=== PATIENT | female | born 1985 | race Caucasian/White ===

== ENCOUNTER 2022-04-07 07:53 | Inpatient (IN) | payer BC ==
[2022-04-07] MEDS ORDERED: Methylergonovine 0.2 MG/1 ML Amp IM PRN (08:34)
[2022-04-07] MEDS ORDERED: Nalbuphine HCl 10 MG/ 1ML Amp IVPUSH PRN (08:34)
[2022-04-07] MEDS ORDERED: Misoprostol 200 MCG Tab PO PRN (08:34)
[2022-04-07] MEDS ORDERED: Lidocaine 1% 50 ML MDV INJECT PRN (08:34)
[2022-04-07] MEDS ORDERED: Oxytocin/Lactated Ringers 10 UNIT/1,000 ML BAG IV SCH ×2 (08:45)
[2022-04-07] MEDS ORDERED: Ampicillin 2 GM in Sodium Chloride 0.9% 100 ML IV ONE (09:00)
[2022-04-07] MEDS: Lactated Ringers 1,000 ML IV SCH ×2 (09:11→21:04)
[2022-04-07] MEDS ORDERED: ePHEDrine 50 MG/ML SDV IVPUSH PRN (10:23)
[2022-04-07] MEDS ORDERED: fentaNYL 100 MCG/2 ML SDV EPIDUR PRN (10:23)
[2022-04-07] MEDS ORDERED: diphenhydrAMINE 50 MG/ML SDV IVPUSH PRN (10:23)
[2022-04-07] MEDS: Ampicillin 1 GM in Sodium Chloride 0.9% 100 ML IV SCH ×3 (13:07→21:03)
[2022-04-07] MEDS: Bupivacaine/fentaNYL/NS 100 ML Bag EPIDUR PRN (21:06)
[2022-04-08] MEDS ORDERED: Bupivacaine 0.25% 10 ML SDV ONE
[2022-04-08] MEDS: Ampicillin 1 GM in Sodium Chloride 0.9% 100 ML IV SCH ×3 (01:16→09:20)
[2022-04-08] MEDS: Lactated Ringers 1,000 ML IV SCH (04:00)
[2022-04-08] MEDS: Bupivacaine/fentaNYL/NS 100 ML Bag EPIDUR PRN (04:02)
[2022-04-08] MEDS ORDERED: Ondansetron 4 MG/2 ML SDV IVPUSH PRN (08:27)
[2022-04-08] MEDS ORDERED: Hydrocortisone Acetate 25 MG Supp RECTAL PRN (11:05)
[2022-04-08] MEDS ORDERED: Benzocaine/Menthol 20%-0.5% Spray 78 GM Cannister TOP PRN (11:05)
[2022-04-08] MEDS ORDERED: Witch Hazel Medicated Pads 40/Jar TOP PRN (11:05)
[2022-04-08] MEDS ORDERED: Acetaminophen 325 MG Tab PO PRN (11:05)
[2022-04-08] MEDS ORDERED: Magnesium Hydroxide 400 MG/5 ML Susp 30 ML Cup PO PRN (11:05)
[2022-04-08] MEDS ORDERED: Oxytocin/Lactated Ringers 10 UNIT/1,000 ML BAG IV SCH (11:05)
[2022-04-08] MEDS: Ibuprofen 600 MG Tab PO PRN ×2 (11:18→18:25)
[2022-04-08] MEDS: Docusate Sodium 100 MG Cap PO PRN (18:25)
[2022-04-09] MEDS: Docusate Sodium 100 MG Cap PO PRN (07:30)
[2022-04-09] MEDS: Ibuprofen 600 MG Tab PO PRN ×3 (07:30→20:56)
[2022-04-09] MEDS: Prenatal Multivitamin with Calcium/Folic Acid/Iron Tab PO SCH ×2 (07:32→09:40)
[2022-04-09] MEDS ORDERED: diphenhydrAMINE 25 MG Cap PO ONE (21:06)
[2022-04-10] MEDS: Prenatal Multivitamin with Calcium/Folic Acid/Iron Tab PO SCH (08:30)
[2022-04-10] MEDS: Ibuprofen 600 MG Tab PO PRN (08:30)
== END 2022-04-10 10:45 | disposition home or self-care (01) | DRG 560 ==
LOC: JD.OBCHECK 07:53 → JD.OB 07:55 → JD.OBCHECK 08:34 → OBSVTOIN 04-08 09:57 → JD.OB 04-08 11:05
PROVIDERS: ADMIT Obstetrics & Gynecology; ATTEND Obstetrics & Gynecology
PROC: 10D07Z6 Extraction of Products of Conception, Vacuum, Via Natural or Artificial Opening (ICD-10-PCS; principal; 2022-04-08)
PROC: 0W8NXZZ Division of Female Perineum, External Approach (ICD-10-PCS; 2022-04-08)
PROC: 3E0R3BZ Introduction of Anesthetic Agent into Spinal Canal, Percutaneous Approach (ICD-10-PCS; 2022-04-08)
PROC: 00HU33Z Insertion of Infusion Device into Spinal Canal, Percutaneous Approach (ICD-10-PCS; 2022-04-08)
DX: O13.4 Gestational [pregnancy-induced] hypertension without significant proteinuria, complicating childbirth (principal); O99.02 Anemia complicating childbirth; D64.9 Anemia, unspecified; O99.824 Streptococcus B carrier state complicating childbirth; O99.62 Diseases of the digestive system complicating childbirth; K21.9 Gastro-esophageal reflux disease without esophagitis; Z37.0 Single live birth; Z3A.39 39 weeks gestation of pregnancy
CPT/HCPCS: 01967; 36415; 51702; 59025; 59409; 80053; 82570; 83615; 84156; 85025; 86592; A9270-GY; J0290; J1200; J2405; J2590; J3010; J3490; J7120